=== PATIENT | female | born 1985 | race Caucasian/White ===

== ENCOUNTER 2017-12-19 02:27 | Emergency (ER) | payer MEDICAID ==
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
[2017-12-19] MEDS: Ketorolac 30 MG/ML SDV IM ONE (03:35)
[2017-12-19] MEDS: Ondansetron 4 MG Tab.DIS PO PRN (03:35)
--- NOTE | 2017-12-19 08:21 | CR ---
Chest 2V HISTORY: Chest Pain COMPARISON: None FINDINGS: Lungs appear clear and normally aerated. Cardiomediastinal silhouette is within normal limits. No vas cular redistribution or pleural fluid can be seen. Bony structures and soft tissues are unremarkable. IMPRESSION: No acute chest abnormality identified.
== END 2017-12-19 05:26 | disposition home or self-care (01) ==
LOC: JP.ED 02:27
DX: M25.512 Pain in left shoulder (principal); F17.210 Nicotine dependence, cigarettes, uncomplicated
CPT/HCPCS: 36415; 71046; 80053; 80305; 81001; 83690; 84484; 85025; 85379; 87086; 93005; 96372; 99283; 99284; A9270; J1885